=== PATIENT | male | born 1965 | race Caucasian/White ===

== ENCOUNTER 2022-04-03 15:20 | Emergency (ER) | payer OTHER ==
[2022-04-03] MEDS ORDERED: ATORVASTATIN CA10 MG PO (15:37)
[2022-04-03] MEDS ORDERED: ALDACTAZIDE 25/1 TA1 (15:37)
[2022-04-03] MEDS ORDERED: MELOXICAM15 MG PO (15:37)
[2022-04-03 16:44] LABS: BASO # 0.04 K/mm3 (0.02-0.10); EOS # 0.08 K/mm3 (0.04-0.40); HEMOGLOBIN 14.2 g/dL (13.5-18.0); LYMPH# 2.71 K/mm3 (1.50-4.00); MEAN CELL VOLUME 102 fl (78-100); MEAN CORPUSCULAR HEMOGLOBIN 35 pg (27-31); MEAN CORPUSCULAR HGB CONC 35 g/dL (33-37); MEAN PLATELET VOLUME 9.2 fl (7.4-10.4); MONO # 0.67 K/mm3 (0.20-0.80); NEU # 4.79 K/mm3 (1.40-6.50); PLATELET COUNT 162 K/mm3 (130-400); RED BLOOD COUNT 4.02 M/mm3 (4.20-5.60); RED CELL DISTRIBUTION WIDTH 11.9 % (11.5-14.5); WHITE BLOOD COUNT 8.3 K/mm3 (4.8-10.8)
[2022-04-03 16:54] LABS: POTASSIUM 3.7 mmol/L (3.5-5.1)
[2022-04-03 16:55] LABS: CALCIUM 9.3 mg/dL (8.3-10.5)
[2022-04-03 18:57] VITALS: BP 148/96
== END 2022-04-03 18:59 | disposition short-term general hospital (02) ==
LOC: ED 15:20
PROVIDERS: Family Medicine
DX: S72.002A Fracture of unspecified part of neck of left femur, initial encounter for closed fracture (principal); W18.30XA Fall on same level, unspecified, initial encounter
CPT/HCPCS: J1885; J3010